=== PATIENT | male | born 1960 | race Caucasian/White ===

== ENCOUNTER 2022-09-06 23:19 | Emergency (ER) | payer OTHER, SELFPAY ==
[2022-09-06 23:32] VITALS: BP 166/83; PULSE 69; RESP 16; TEMP 37.5; O2SAT 99; BMI 29.8
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
== END 2022-09-07 00:44 | disposition home or self-care (01) ==
LOC: ED 23:51
PROVIDERS: Emergency Provider Internal Medicine; PCP Family Medicine
DX: S09.93XA Unspecified injury of face, initial encounter (principal); Y04.2XXA Assault by strike against or bumped into by another person, initial encounter
CPT/HCPCS: 70450; 70486; 99283